=== PATIENT | female | born 1935 | race Caucasian/White ===

== ENCOUNTER 2016-05-13 07:54 | Day surgery (SDC) | payer MEDICARE, OTHER ==
[2016-05-12 14:38] VITALS: BMI 29.5
[2016-05-13] VITALS (11 sets, daily range): BP systolic 116–177; BP diastolic 49–79; PULSE 50–62; RESP 16–19; Ht 147.3 cm; Wt 62.7 kg
[~2016-05-13] VITALS: Ht 147.3 cm; Wt 62.7 kg
[~2016-05-13 07:54] MED LIST: CEFAZOLIN 1 GM INJ ONE
[2016-05-13] MEDS ORDERED: CEFAZOLIN 2 GM/50 ML (PMX) 50 ML IVPB ONE (08:00)
[2016-05-13] MEDS ORDERED: SOD CHLORIDE 0.9% 1,000 ML IV SCH (08:00)
[2016-05-13] MEDS ORDERED: METO25TA7 PO (09:24)
[2016-05-13] MEDS ORDERED: ONDANSETRON 4 MG INJ ONE (09:53)
[2016-05-13] MEDS ORDERED: NEOSTIGMINE 3 MG/3 ML SYRINGE ONE (09:53)
[2016-05-13] MEDS ORDERED: ROCURONIUM 50 MG INJ ONE (09:53)
[2016-05-13] MEDS ORDERED: LIDOCAINE 100 MG SYRINGE ONE (09:53)
[2016-05-13] MEDS ORDERED: FENTAnyl 50 MCG/ML VIAL ONE ×2 (09:53→10:45)
[2016-05-13] MEDS ORDERED: MIDAZOLAM 1 MG/ML 2 ML INJ ONE (09:53)
[2016-05-13] MEDS ORDERED: GLYCOPYRROLATE 0.4 MG INJ ONE (09:53)
[2016-05-13] MEDS ORDERED: PROPOFOL 20 ML ONE (09:53)
[2016-05-13] MEDS ORDERED: DEXAMETHASONE 4 MG/ML 1 ML INJ ONE (09:53)
[2016-05-13] MEDS ORDERED: hydrALAzine 20 MG INJ ONE (10:01)
[2016-05-13] MEDS ORDERED: BUPIVACAINE 0.25% (MPF) 30 ML INJ INJ ONE (10:17)
[2016-05-13] MEDS ORDERED: TRIMETHOBENZAMIDE 100 MG/ML VIAL IM PRN (10:30)
[2016-05-13] MEDS ORDERED: DIPHENHYDRAMINE 50 MG INJ IV PRN (10:30)
[2016-05-13] MEDS ORDERED: HYDROmorphONE (0.2 MG/ML) 10ML SYG IV PRN ×3 (10:30)
[2016-05-13] MEDS ORDERED: MEPERIDINE 25 MG INJ IV PRN (10:30)
[2016-05-13] MEDS ORDERED: FENTAnyl 50 MCG/ML VIAL IV PRN ×3 (10:30)
[2016-05-13] MEDS ORDERED: EPHEDrine SULFATE 50 MG/5 ML SYG IV PRN (10:30)
[2016-05-13] MEDS ORDERED: ONDANSETRON 4 MG INJ IV PRN (10:30)
[2016-05-13] MEDS ORDERED: LABETALOL HCL 20MG INJ IV PRN (10:30)
[2016-05-13] MEDS ORDERED: hydrALAzine 20 MG INJ IV PRN (10:30)
[2016-05-13] MEDS ORDERED: MIDAZOLAM 1 MG/ML 2 ML INJ IV PRN (10:30)
[2016-05-13] MEDS ORDERED: HYDROCODONE/APAP (5/325) TAB PO ONE (11:00)
--- NOTE | 2016-05-13 11:50 | OPR ---
DATE OF OPERATION: 05/13/2016 INDICATIONS: This is an 81-year-old female with a recurrent incarcerated incisional hernia. She re quests surgical repair. Risks, alternatives, benefits, and personnel were discussed with the patien t. The patient expressed understanding and consents to the operation. PREOPERATIVE DIAGNOSIS: Incarcerated recurrent incisional hernia. POSTOPERATIVE DIAGNOSIS: Incarcerated recurrent incisional hernia. OPERATIONS PERFORMED: 1. Laparoscopic incarcerated recurrent incisional hernia repair with 15 x [address] mesh . 2. Laparoscopic lysis of adhesions of 1 hour. SURGEON: Charles Ewing MD SPECIMEN: None. COMPLICATIONS: None. ANESTHESIA: General. PROCEDURE: The patient was taken to the OR, prepped and draped in the usual sterile fashion. Surgi tracy time out was performed. IV antibiotics were given. Left upper quadrant 5 mm incision was made transversely with a 15 blade. Using a 5 mm optical trocar, optical entry was performed. Pneumoperi toneum was established. Left flank 12 mm optical trocar and left lower quadrant 5 mm optical trocar s were placed under direct visualization. Upon initial inspection, there were incarcerated ventral hernia contents. This was excised laparoscopically. Lysis of adhesions were approximately 1 hour. After lysis of adhesions was performed, the incarcerated hernia contents were reduced. There appea red to be multiple small defects. This was covered with approximately 4 to 5 cm of underlay coverag e in all directions. The mesh was secured in place with SecureStrap. In addition a transfascial #1 Prolene sutures using Endo Close and laparoscopic techniques. There was good hemostasis. Ports re moved under direct visualization. Skin was closed using skin melvina. Local anesthesia was injecte d. Dry dressings were applied. Dictated By: CHARLES WEESM/BANDAR Conf#: [id number] DID#: [id number]
== END 2016-05-13 14:10 | disposition home or self-care (01) ==
LOC: SDS 07:54
PROVIDERS: ATTEND Surgery
DX: K43.0 Incisional hernia with obstruction, without gangrene (principal); E11.9 Type 2 diabetes mellitus without complications; I10 Essential (primary) hypertension
CPT/HCPCS: 49657; C1781; J0360; J1100; J1170; J2001; J2250; J2405; J2710; J3010; J0690